=== PATIENT | male | born 1995 | race Caucasian/White ===

== ENCOUNTER 2020-04-23 13:06 | Emergency (ER) | payer OTHER ==
[~2020-04-23] VITALS: Ht 185.4 cm; Wt 97.7 kg
[2020-04-23 13:25] VITALS: BP 156/109
[2020-04-23] MEDS ORDERED: RALT400T PO (14:11)
[2020-04-23] MEDS ORDERED: EMTR1TAB8 PO (14:11)
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
== END 2020-04-23 14:25 | disposition home or self-care (01) ==
LOC: ER 13:06
DX: Z77.21 Contact with and (suspected) exposure to potentially hazardous body fluids (principal); J45.909 Unspecified asthma, uncomplicated; Z88.1 Allergy status to other antibiotic agents
CPT/HCPCS: 86703; 86706; 86803; 87340; 99283

== ENCOUNTER 2021-08-28 13:53 | Emergency (ER) | payer BC, OTHER ==
[~2021-08-28] VITALS: Ht 185.4 cm; Wt 97.7 kg
[~2021-08-28 13:53] MED LIST: EMTR1TAB8 PO; RALT400T PO
[2021-08-28 14:04] VITALS: BP 181/110
[2021-08-28] MEDS ORDERED: IOHEXOL 300 MG/ML 75 ML VIAL. IV ONE (14:30)
[2021-08-28] MEDS ORDERED: DEXAMETHASONE SOD PHOS 10 MG/ML VIAL. IVP ONE (14:30)
[2021-08-28] MEDS ORDERED: IV NORMAL SALINE 1,000ML 1,000 ML IV ONE (14:30)
[2021-08-28] MEDS ORDERED: KETOROLAC 15 MG/ML VIAL. IVP ONE (14:30)
[2021-08-28] MEDS ORDERED: CLINDAMYCIN 600MG PREMIX 50 ML IV ONE (14:30)
[2021-08-28] MEDS ORDERED: IOHEXOL 300 MG/ML 75 ML VIAL. ONE (14:36)
[2021-08-28] MEDS ORDERED: CONTRAST GIVEN. MC PRN (14:45)
[2021-08-28 15:05] LABS: BASO # 0.1 x10^3/uL (0.0-0.2); BASO % 1 % (0-3); EOS # 0.5 x10^3/uL (0.0-0.7); EOS % 5 % (0-3); HEMATOCRIT 44.4 % (39.0-53.0); HEMOGLOBIN 15.2 g/dL (13.0-17.5); LYMPH # 2.3 x10^3/uL (1.0-4.8); LYMPH % 25 % (24-48); MEAN CORPUSCULAR HEMOGLOBIN 29 pg (25-35); MEAN CORPUSCULAR HGB CONC 34 g/dL (31-37); MEAN CORPUSCULAR VOLUME 85 fL (79-100); MONO # 0.7 x10^3/uL (0.0-1.1); MONO % 7 % (0-9); NEUT # 5.6 x10^3uL (1.8-7.7); NEUT % 62 % (31-73); PLATELET COUNT 220 x10^3/uL (140-400); RED BLOOD COUNT 5.25 x10^6/uL (4.30-5.70); RED CELL DISTRIBUTION WIDTH 13.8 % (11.5-14.5)
--- NOTE | 2021-08-28 15:06 | RAD ---
EXAMINATION: CT NECK SOFT TISSUE WITH IV CONTRAST, 08/28/2021 2:47 PM CLINICAL INDICATION: Left mandibular molar pain extending into neck. COMPARISON: None TECHNIQUE: Helical CT imaging performed of the soft tissues neck after administration of intravenous contrast. Sagittal and coronal reformats were obtained. One or more of the following individualized dose reduction techniques were utilized for this examinat ion: 1. Automated exposure control 2. Adjustment of the mA and/or kV according to patient size 3. Use of iterative reconstruction technique. FINDINGS: There is no evidence of abscess or soft tissue gas. No periapical lucencies along the teeth . The nasopharynx, oropharynx, hypopharynx, and larynx are normal. Parotid, submandibular, and thyroid glands are normal. Cervical vasculature is patent. Prominent bila teral cervical chain lymph nodes, likely reactive. Visualized portion of the brain is unremarkable. Paranasal sinuses and mastoid air cells are clear. G lobes and orbits are intact. Lung apices are clear. No acute osseous abnormality. Prevertebral soft t issues is normal. IMPRESSION: No abscess or other acute abnormality in the neck. Electronically signed by: Ariana Cardoza MD (08/28/2021 3:04 PM) [id number]
[2021-08-28 15:08] LABS: CALCIUM 9.6 mg/dL (8.5-10.1); CREATININE 1.1 mg/dL (0.7-1.3); GFR 82.2; POTASSIUM 4.2 mmol/L (3.5-5.1)
[2021-08-28 15:14] LABS: ALBUMIN 4.4 g/dL (3.4-5.0); ALBUMIN/GLOBULIN RATIO 1.3 (1.0-1.7); MAGNESIUM 1.9 mg/dL (1.8-2.4); TOTAL BILIRUBIN 0.8 mg/dL (0.2-1.0); TOTAL PROTEIN 7.9 g/dL (6.4-8.2)
[2021-08-28] MEDS ORDERED: PRED20TA PO (16:20)
[2021-08-28] MEDS ORDERED: CHLO15MO2 PO (16:20)
[2021-08-28] MEDS ORDERED: CLIN-95 PO (16:20)
[2021-08-28] MEDS ORDERED: OXYC1TAB15 PO (16:20)
--- NOTE | 2021-08-28 16:22 | PHYS DOC ---
Past History Past Medical History: Asthma Past Surgical History: No Surgical History Additional Smoking Information: Vapes Alcohol Use: Occasionally Drug Use: None General Adult EDM: Chief Complaint: FACE PROBLEM HPI: HPI: 25-year-old male presents with 1 week history of left mandibular molar pain which is since become worse. Patient reports now with pain up into his ear and down into his left side of his neck. Patient reports some fullness. Denies any fever or chills. Denies trauma. Patient reports his dentist had wanted him to follow with an oral surgeon for removal of the tooth however patient has not been able to get in to be seen. Patient reports he was unable to get an jordan ointment with his dentist. Patient has been using [id number] ibuprofen and Tylenol without improvement. Patient reports the pain became so severe today that he decided to present to the ER for further evaluation. Review of Systems: Review of Systems: Constitutional: Denies fever or chills Eyes: Denies redness or eye pain HENT: Denies nasal congestion or sore throat; reports left mandibular molar pain and left earache Respiratory: Denies cough or shortness of breath Cardiovascular: Denies chest pain or palpitations GI: Denies abdominal pain, nausea, or vomiting : Denies dysuria or hematuria Musculoskeletal: Denies back pain; reports left neck pain Integument: Denies rash or skin lesions Neurologic: Denies headache, focal weakness or sensory changes Complete systems were reviewed and found to be within normal limits, except as documented in this note. Current Medications: Current Meds: Current Medications Medications (Trade) Dose Ordered Sig/Vishal Start Time Stop Time Status Last Admin Dose Admin Clindamycin Phosphate 50 ml @ 100 mls/hr 1X ONCE 08/28/21 14:30 08/28/21 14:59 DC 08/28/21 14:41 100 MLS/HR Dexamethasone Sodium Phosphate (Decadron) 10 mg 1X ONCE 08/28/21 14:30 08/28/21 14:35 DC 08/28/21 14:40 10 MG Info (Do NOT chart on this entry -- for MONITORING) 1 each PRN DAILY PRN 08/28/21 14:45 08/30/21 14:44 Iohexol (Omnipaque 300 Mg/ml) 75 ml STK-MED ONCE 08/28/21 14:36 08/28/21 14:36 DC Ketorolac Tromethamine (Toradol 15mg Vial) 15 mg 1X ONCE 08/28/21 14:30 08/28/21 14:35 DC 08/28/21 14:40 15 MG Sodium Chloride 1,000 ml @ 1,000 mls/hr 1X ONCE 08/28/21 14:30 08/28/21 15:29 DC 08/28/21 14:38 1,000 MLS/HR Allergies: Allergies: Allergies Coded Allergies Type Severity Reaction Last Updated Verified amoxicillin Allergy Unknown 04/23/20 Yes Physical Exam: PE: Constitutional: Well developed, well nourished, no acute distress, non-toxic appearance HENT: Normocephalic, atraumatic, bilateral TMs clear, left first mandibular molar tenderness on palpation, no drainable abscess appreciated, no trismus Eyes: Conjunctiva normal, no discharge Neck: Normal range of motion, left lateral/anterior tenderness, submandibular and anterior cervical lymph node enlargement and tenderness noted, supple Lungs & Thorax: No respiratory distress, equal chest rise and fall Skin: Warm, dry, no erythema, no rash Extremities: No tenderness, ROM intact Neurologic: Alert and oriented X 3, no focal deficits noted Psychologic: Affect normal, judgment normal Current Patient Data: Labs: Laboratory Tests Test 08/28/21 14:40 White Blood Count 9.0 x10^3/uL (4.0-11.0) Red Blood Count 5.25 x10^6/uL (4.30-5.70) Hemoglobin 15.2 g/dL (13.0-17.5) Hematocrit 44.4 % (39.0-53.0) Mean Corpuscular Volume 85 fL (79-100) Mean Corpuscular Hemoglobin 29 pg (25-35) Mean Corpuscular Hemoglobin Concent 34 g/dL (31-37) Red Cell Distribution Width 13.8 % (11.5-14.5) Platelet Count 220 x10^3/uL (140-400) Neutrophils (%) (Auto) 62 % (31-73) Lymphocytes (%) (Auto) 25 % (24-48) Monocytes (%) (Auto) 7 % (0-9) Eosinophils (%) (Auto) 5 % (0-3) H Basophils (%) (Auto) 1 % (0-3) Neutrophils # (Auto) 5.6 x10^3uL (1.8-7.7) Lymphocytes # (Auto) 2.3 x10^3/uL (1.0-4.8) Monocytes # (Auto) 0.7 x10^3/uL (0.0-1.1) Eosinophils # (Auto) 0.5 x10^3/uL (0.0-0.7) Basophils # (Auto) 0.1 x10^3/uL (0.0-0.2) Sodium Level 143 mmol/L (136-145) Potassium Level 4.2 mmol/L (3.5-5.1) Chloride Level 103 mmol/L (98-107) Carbon Dioxide Level 28 mmol/L (21-32) Anion Gap 12 (6-14) Blood Urea Nitrogen 9 mg/dL (8-26) Creatinine 1.1 mg/dL (0.7-1.3) Estimated GFR (Cockcroft-Gault) 82.2 BUN/Creatinine Ratio 8 (6-20) Glucose Level 85 mg/dL (70-99) Lactic Acid Level 0.7 mmol/L (0.4-2.0) Calcium Level 9.6 mg/dL (8.5-10.1) Magnesium Level 1.9 mg/dL (1.8-2.4) Total Bilirubin 0.8 mg/dL (0.2-1.0) Aspartate Amino Transferase (AST) 16 U/L (15-37) Alanine Aminotransferase (ALT) 41 U/L (16-63) Alkaline Phosphatase 67 U/L (46-116) Total Protein 7.9 g/dL (6.4-8.2) Albumin 4.4 g/dL (3.4-5.0) Albumin/Globulin Ratio 1.3 (1.0-1.7) Vital Signs: Vital Signs Date Time Temp Pulse Resp B/P (MAP) Pulse Ox O2 Delivery O2 Flow Rate FiO2 08/28/21 14:04 98.4 80 18 181/110 (133) 97 Room Air EKG: EKG: [] Radiology/Procedures: Radiology/Procedures: PROCEDURE: CT SOFT TISSUE NECK W/CONTRAST EXAMINATION: CT NECK SOFT TISSUE WITH IV CONTRAST, 08/28/2021 2:47 PM CLINICAL INDICATION: Left mandibular molar pain extending into neck. COMPARISON: None TECHNIQUE: Helical CT imaging performed of the soft tissues neck after administ ration of intravenous contrast. Sagittal and coronal reformats were obtained. One or more of the following individualized dose reduction techniques were utilized for this examination: 1. Automated exposure control 2. Adjustment of the mA and/or kV according to patient size 3. Use of iterative reconstruction technique. FINDINGS: There is no evidence of abscess or soft tissue gas. No periapical lucencies along the teeth. The nasopharynx, oropharynx, hypopharynx, and larynx are normal. Parotid, submandibular, and thyroid glands are normal. Cervical vasculature is patent. Prominent bilateral cervical chain lymph nodes, likely reactive. Visualized portion of the brain is unremarkable. Paranasal sinuses and mastoid air cells are clear. Globes and orbits are intact. Lung apices are clear. No acute osseous abnormality. Prevertebral soft tissues is normal. IMPRESSION: No abscess or other acute abnormality in the neck. Electronically signed by: Ariana Cardoza MD (08/28/2021 3:04 PM) [id number] Heart Score: C/O Chest Pain: N/A Course & Med Decision Making: Course & Med Decision Making Pertinent Labs and Imaging studies reviewed. (See chart for details) Patient presents with 1 week history of progressive left mandibular molar pain now with significant pain to left lateral/anterior neck. Some lymphadenopathy appreciated. No drainable abscess noted on physical exam. CT obtained without dental abscess appreciated or signs of significant infection. Symptomatic treatment provided including steroid. Empiric antibiotic initiated. Labs obtained and posted to chart. WBC and lactic acid within normal limits. Patient stable for discharge with outpatient follow-up with PCP/dentist. Discussed findings and plan with patient, who acknowledges understanding and agreement. Lidia Disclaimer: Lidia Disclaimer: This electronic medical record was generated, in whole or in part, using a voice recognition dictation system. Departure Departure: Impression: Primary Impression: Dentalgia Disposition: HOME / SELF CARE / HOMELESS Condition: STABLE Referrals: REED PERALES (PCP) Patient Instructions: Toothache-Brief Scripts Oxycodone Hcl/Acetaminophen (PERCOCET 5-325 MG TABLET ) 1 Each Tablet 0.5 TAB PO PRN Q6HRS PRN for PAIN, #10 TAB Prov: KENAN ALEJO DO 08/28/21 Prednisone (PREDNISONE) 20 Mg Tablet 2 TAB PO DAILY for Inflammation for 4 Days, #8 TAB Start this prescription tomorrow, Wednesday08/29/21 Prov: KENAN ALEJO DO 08/28/21 Chlorhexidine Gluconate (PERIDEX) 15 Ml Mouthwash 15 ML PO BID for Dental infection for 30 Days, #473 ML 0 Refills Prov: KENAN ALEJO DO 08/28/21 Clindamycin Hcl (CLINDAMYCIN HCL) 300 Mg Capsule 1 CAP PO TID for infection for 7 Days, #21 CAP Prov: KENAN ALEJO DO 08/28/21 KENAN ALEJO DO August 28, 2021 16:22
== END 2021-08-28 16:33 | disposition home or self-care (01) ==
LOC: ER 13:53
DX: K08.89 Other specified disorders of teeth and supporting structures (principal); H92.02 Otalgia, left ear; M54.2 Cervicalgia; J45.909 Unspecified asthma, uncomplicated; F17.200 Nicotine dependence, unspecified, uncomplicated; Z88.1 Allergy status to other antibiotic agents
CPT/HCPCS: 36415; 70491; 80053; 83605; 83735; 85025; 87040; 96365; 96375; 99285; J1100; J1885; J3490; J7030; Q9967